=== PATIENT | male | born 1945 | race Caucasian/White ===

== ENCOUNTER 2020-07-28 13:12 | Observation (INO) | payer OTHER, MEDICARE ==
[~2020-07-28] VITALS: Ht 175.3 cm; Wt 77.1 kg
[~2020-07-28 13:12] MED LIST: CHOL10002 PO; DIPH50 PO; SILD50TA PO
[2020-07-28] MEDS ORDERED: LOSA50 PO (14:27)
--- NOTE | 2020-07-28 15:34 | NUR ---
REPORT RECEIVED FROM FELTMAKER AND WEIGHERAMBER JOYCE.
[2020-07-28 15:40] LABS: Influenza A, PCR NEGATIVE (NEGATIVE); Influenza B, PCR NEGATIVE (NEGATIVE); Resp Syncytial Virus, PCR NEGATIVE (NEGATIVE); SARS-Cov-2 (COVID-19) PCR, MMC NEGATIVE (NEGATIVE)
--- NOTE | 2020-07-28 17:21 | NUR ---
ADMISSION: REPORT RECEIVED FROM ED RN. PT TO ROOM AT 1600. PT IS A/O, VSS, ABLE TO AMBULATE TO BED FROM [facility]. PT DENIES PAIN/NAUSEA AT THIS TIME. ADMISSION HX COMPLETE. CALL LIGHT IN REACH, WILL CTM. DR. RUSSELL AT BEDSIDE AT ABOUT 1630
--- NOTE | 2020-07-28 17:49 | NUR ---
PT TO OR AT ABOUT 1740, IV UNASYN GIVEN TO TECHNOLOGY TRAINER
--- NOTE | 2020-07-28 18:05 | NUR ---
INTO PACU FOR SURGERY PREP VIA GURNEY FROM SURG FLOOR. History, Chart, Medications and Allergies reviewed before start of procedure.Patient confirms NPO status and agrees with scheduled surgery. Lungs clear T/O to Auscultation.
--- NOTE | 2020-07-29 04:11 | NUR ---
SHIFT SUMMARY POD1 LAP APPY, A/O X4, VSS, TOLERATING DIET, VOIDING WELL, NO BM THIS SHIFT BUT JUST CAME OUT OF SURGERY AT THE START OF THIS SHIFT. PAIN WELL MANAGED PER EMAR, AMBULATED W/ 1 PER SBA. TENTATIVE DC HOME LATER TODAY. NO ACUTE EVENTS THIS SHIFT. CALL LIGHT IN REACH, WILL CONTINUE TO MONITOR AND REPORT TO ONCOMING DAY RN.
[2020-07-29] MEDS ORDERED: Percocet 5-3251 EACH PO (09:44)
--- NOTE | 2020-07-29 11:40 | NUR ---
DISCHARGE PT DISCHARGED HOME FROM UNIT AT APROX 1130. PT GIVEN WRITTEN AND VERBAL DISCHARGE INSTRUCTIONS AND VERBALIZED UNDERSTANDING OF THESE INSTRUCTIONS. IV REMOVED. PT DECLINED WHEELCHAIR TO CAR, AMBULATED INDEPENDETLY
== END 2020-07-29 11:17 | disposition home or self-care (01) ==
LOC: ER 13:12 → SURS 13:13 → ER 14:22 → SURS 15:53
PROVIDERS: Emergency Medicine; ADMIT Surgery
DX: K35.80 Unspecified acute appendicitis (principal); F10.10 Alcohol abuse, uncomplicated; I10 Essential (primary) hypertension; H35.30 Unspecified macular degeneration; K57.30 Diverticulosis of large intestine without perforation or abscess without bleeding; Z20.822 Contact with and (suspected) exposure to COVID-19; Z87.891 Personal history of nicotine dependence; Z87.19 Personal history of other diseases of the digestive system
CPT/HCPCS: 0241U; 74177; 80053; 85025; 88304; 93005; 93010; 96365; 99285-25; A9270; G0378; J0295; J1100; J1170; J1885; J2250; J2370; J2405; J2704; J2710; J3010; J3411; J3475; J7042; J7120; Q9967

== ENCOUNTER → 2021-06-15 | Outpatient (CLI) | payer MEDICARE ==
[~2021-06-15] MED LIST changes: +LOSA50 PO; +Percocet 5-3251 EACH PO
== END | disposition home or self-care (01) ==
LOC: LAB SHORT 13:59
DX: R21 Rash and other nonspecific skin eruption (principal)
CPT/HCPCS: 87070; 87205

== ENCOUNTER → 2021-06-15 | Outpatient (CLI) | payer MEDICARE | END | disposition home or self-care (01) | LOC: LAB 10:06 → LAB SHORT 10:06 | DX: R21 Rash and other nonspecific skin eruption (principal); B02.9 Zoster without complications | CPT/HCPCS: 87798 ==

== ENCOUNTER 2023-11-16 07:30 | Day surgery (SDC) | payer MEDICARE ==
[~2023-11-16] VITALS: Ht 172.7 cm; Wt 75.0 kg
[2023-11-16] VITALS (14 sets, daily range): BP systolic 119–193; BP diastolic 63–107
[~2023-11-16 07:30] MED LIST changes: +Lactated Ringer's 1,000 ML IV SCH; +TAMS.4ER PO; +propofoL 40 ML IV ONE
--- NOTE | 2023-11-16 08:13 | NUR ---
Ambulatory in Day Surgery History, Chart, Medications and Allergies reviewed before start of procedure. Pre-Op teaching done. Pt verbalizes understanding. Patient States Post-Procedure ride home has been arranged.
--- NOTE | 2023-11-16 08:44 | NUR ---
11/16/23 0844 Suly Wolf HISTORY, CHART, MEDICATIONS AND ALLERGIES REVIEWED BEFORE START OF PROCEDURE. PATIENT CONFIRMS NPO STATUS AND AGREES WITH SCHEDULED PROCEDURE. 3-LEAD EKG REVIEWED WITH PHYSICIAN PRIOR TO START OF PROCEDURE. MONITOR INTACT WITH CONTINUOUS PULSE OXIMETRY,CAPNOGRAPHY, 3-LEAD EKG, INTERMITTENT BP. SUPPLEMENTAL O2 TO BE TITRATED THROUGHOUT PROCEDURE TO MAINTAIN O2 SATURATION ABOVE 90%. PATIENT DETERMINED TO BE ASA APPROPRIATE FOR PROPOFOL SEDATION PRIOR TO START OF PROCEDURE BY DR. POPE
[2023-11-16] MEDS ORDERED: Atropine Sulfate 0.1 MG/ML 10ML SYR ONE (09:00)
--- NOTE | 2023-11-16 09:21 | NUR ---
PT TO DAY SURGERY STEP DOWN FROM COLONOSCOPY; BEDSIDE REPORT RECEIVED. PT IS AWAKE, ALERT AND ORIENTED; ABLE TO MOVE SELF IN BED. VSS. PT HAS NO COMPLAINTS AT THIS TIME.
--- NOTE | 2023-11-16 09:37 | NUR ---
PT DECLINES FLUIDS. Discharge instructions reviewed with patient. Patient verbalizes understanding. Copy given to patient to take home. Patient States Post-Procedure ride home has been arranged.
--- NOTE | 2023-11-16 09:43 | NUR ---
Discharged via wheelchair to private car for ride home.
== END 2023-11-16 09:44 | disposition home or self-care (01) ==
LOC: ORSCMMR 07:30 → ORD 08:30 → ORSCMMR 08:30
PROVIDERS: Internal Medicine Gastroenterology
PROC: 0DBH8ZX Excision of Cecum, Via Natural or Artificial Opening Endoscopic, Diagnostic (ICD-10-PCS; principal; 2023-11-16 08:30)
PROC: 0DBK8ZX Excision of Ascending Colon, Via Natural or Artificial Opening Endoscopic, Diagnostic (ICD-10-PCS; principal; 2023-11-16 08:30)
DX: K57.30 Diverticulosis of large intestine without perforation or abscess without bleeding (principal); Z86.010 Personal history of colon polyps; D12.2 Benign neoplasm of ascending colon; K63.5 Polyp of colon; I10 Essential (primary) hypertension; Z87.891 Personal history of nicotine dependence; Z79.899 Other long term (current) drug therapy
CPT/HCPCS: 88305; J0461; J2704; J7120